=== PATIENT | female | born 1980 | race Caucasian/White ===

== ENCOUNTER → 2024-09-22 16:07 | Outpatient (REF) | payer OTHER, SELFPAY | LOC: RAD 16:07 | PROVIDERS: ATTENDING PHYSICIAN Family Medicine | DX: R05.1 Acute cough (principal) | CPT/HCPCS: 71046 ==

== ENCOUNTER 2025-03-21 21:55 | Emergency (ER) | payer BC, SELFPAY ==
[2025-03-21 21:58] VITALS: BP 136/85
--- NOTE | 2025-03-21 22:30 | ED.MUSCINJ ---
HPI-Injury
General
Chief Complaint: Musculo-Skeletal Complaint
Source: patient
Exam Limitations: none
Time Seen by Provider: 03/21/25 22:18
Nursing documentation reviewed up to this point in time: agreed with
History of Present Illness-Injury
Initial Injury comments:
Patient states her dog stepped on her foot 1 week ago. She continues to have pain to dorsum of left foot. No redness or swelling. No wounds.
Past History
Past History
ED Past Medical History: None
ED Past Surgical History: Cholecystectomy and Orthopedic
Social History
Tobacco: Non-smoker
Alcohol: None
Drug: None
Personal:
Living: with family
Employment: Employed
Review of Systems
Review of Systems
Allergies reviewed?: Yes
All Other Systems: ROS reviewed and negative except as documented in HPI and ROS
Musculoskeletal: Reports joint pain (pain to dorsum of left foot)
Skin: Reports no symptoms
Neurological: Reports no symptoms
Psychiatric: Reports no symptoms
Musculoskeletal Injury Exam
Musculoskeletal Injury Exam
Left Dorsal Foot:
Pain with Movement?: Moderate
Tender to palpation?: Moderate
Soft tissue swelling?: None
External deformity and angulation?: None
Joint effusion?: None
Contusion?: Moderate
Hematoma-local bleeding into tissue?: None
Strain- Sprain- Tear (Connective tissue injury)?: None
Crepitus with movement?: No
Joint instability?: No
Malalignment/deformity?: No
Range of motion: Full
Distal skin color and temperature: normal-warm & good color
Capillary Refill: normal
Normal distal neurovascular exam?: Yes
Peripheral Pulses: posterior tibial (left): 3+ and dorsalis pedis (left): 3+
Phy Exam
General Physical Exam
General Presentation: well appearing and no apparent distress
General age: appears stated age
General Skin: warm and dry
General Habitus: normal
General Mental: alert
Musculoskeletal Exam
Musculoskeletal Exam: full ROM and neuro vasc intact
Skin Exam
Skin Exam: normal color, warm/dry and no rash
Psychiatric Exam
Psychiatric Exam: normal mood/affect
Injury Course
Orders/Labs/Results
Orders:
Orders
03/21/25 22:02
CR Foot - Left Min 3 Views Urgent
Comment:
Reason For Exam: pain, injury
03/21/25 22:21
Ortho Boot Left- Treatment ONCE
Short or tall?: Short
*Radiology
Radiology exam reviewed: radiology read reviewed
*Pulse Oximetry
SaO2: 97
Oxygen Mode of Delivery: Room air
Patient hypoxic: no
*Critical Care Note
Total Time (30-74mins, 75-104mins- exclusive of procedures): Not Applicable
ED Attending Note
-
Portions of this chart may have been created with voice recognition software.� Occasional wrong word or��sound alike� substitutions may have occurred due to the inherent limitations of voice recognition software.
Discharge Plan
Departure
Patient Disposition: Home (Routine Discharge)
Date of Disposition: 03/21/25
Time of Disposition: 22:22
Patient with high blood pressure during this ER visit?: No
Condition: Good
Covid-19: Not Applicable
Discharge Problem:
Contusion of foot, left
Instructions: Contusion (DC), Ibuprofen, Using Cold for Pain
Prescriptions:
No Action
escitalopram oxalate [Lexapro] 20 mg Tablet
20 mg PO HS
Rexulti 1 mg Tablet
1 mg PO HS
Mounjaro 7.5 mg/0.5 mL Pen Injector
7.5 mg SC FR
Referrals:
Yanira Hickey I., DO [Active, Orthopedics]
Referral Note: Follow up if your symptoms do not improve over the next week.
Interventions
Interventions:
*Risk Screen - Suicide Last Done: 03/21/25 21:58
*General Assessment Last Done: 03/21/25 21:58
*Neglect/Abuse Screening Last Done: 03/21/25 21:58
ED-Musculoskeletal Assessment Last Done: 03/21/25 22:23
Discharge Date and Time
Print Language: SLOVENIAN
== END 2025-03-21 22:36 | disposition home or self-care (01) ==
LOC: EMR 21:55
PROVIDERS: EMERGENCY PHYSICIAN Emergency Medicine; FAMILY PHYSICIAN Family Medicine
DX: S90.32XA Contusion of left foot, initial encounter (principal); W54.1XXA Struck by dog, initial encounter
CPT/HCPCS: 99283; 73630